=== PATIENT | male | born 1995 | race Two or more races ===

== ENCOUNTER 2018-03-12 12:40 | Emergency (ER) | payer SELFPAY ==
[~2018-03-12] VITALS: Ht 165.1 cm; Wt 102.0 kg
[2018-03-12] MEDS ORDERED: LIDOCAINE-MPF 2%, 2ML ONE (13:16)
[2018-03-12] MEDS ORDERED: LIDOCAINE 2%, 10ML INFIL ONE (13:30)
[2018-03-12] MEDS ORDERED: BACITRACIN ZINC OINT 500U/GM, 0.9 GM ONE (14:10)
[2018-03-12 14:14] VITALS: BP_DIAS 105
[2018-03-12 14:38] VITALS: BP_SYST 180
== END 2018-03-12 14:41 | disposition home or self-care (01) ==
LOC: ED 14:00
DX: S61.412A Laceration without foreign body of left hand, initial encounter (principal); S61.215A Laceration without foreign body of left ring finger without damage to nail, initial encounter; W26.8XXA Contact with other sharp object(s), not elsewhere classified, initial encounter; Y93.89 Activity, other specified; Y92.098 Other place in other non-institutional residence as the place of occurrence of the external cause; Y99.8 Other external cause status
CPT/HCPCS: 12041; 73120; 99285; J3490